=== PATIENT | male | born 2005 | race Caucasian/White ===

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

== ENCOUNTER 2024-03-27 08:16 | Emergency (ER) | payer OTHER, SELFPAY ==
[2024-03-27 08:24] VITALS: BP 123/65; PULSE 78; RESP 18; TEMP 36.9; O2SAT 100
--- NOTE | 2024-03-27 08:29 | ED_ITS ---
HPI - Skin/Abscess/Foreign Bdy General Chief complaint: Skin/Abscess/Foreign Body Stated complaint: poss hand foot and mouth Time Seen by Provider: 03/27/24 08:32 Source: patient, RN notes reviewed and old records reviewed Mode of arrival: ambulatory Limitations: no limitations History of Present Illness HPI narrative: 18 year old male presents to express care with complaints of itchy rash to the palms of his hands since yesterday around 1000 has been using some anti itch ointment and has taken Benadryl without relief.patient has also some red blotchy rash areas to the tops of his hands. Patient reports that he started having a red itching area to both ear lobes also with some crusting yellowish drainage noted on rash on right ear lobe and patient also has crusting area to his right nares area with no drainage. Patient reports that brother had hand foot and mouth about 2 weeks ago with his symptoms resolved. Patient reports that he has not used any new body products, no new laundry products or any new foods or medications. MD complaint: rash Onset (ago): day(s) (1) Tetanus up to date: yes Location: face, L hand and R hand Severity: moderate Quality: pruritic Treatments prior to arrival: OTC topical medication and Benadryl Related Data Allergies Allergy/AdvReac Type Severity Reaction Status Date / Time No Known Allergies Allergy Verified 09/04/21 15:41 Review of Systems Review of Systems: CONSTITUTIONAL: Denies fever, chills, or sweats. CARDIOVASCULAR: Denies chest pain, palpitations, or edema. RESPIRATORY: Denies cough or dyspnea. SKIN: Reports itchy rash to bilateral palms of his hands with no vesicles or pustules noted also red rash areas noted to tops of hands. Patient also has crusty rash on bilateral ear lobes with some yellowish crusting noted on right ear lobe, rash to the right nares opening also with no drainage. MUSCULOSKELETAL: Denies joint pain or myalgia. NEUROLOGIC: Denies headache, numbness, or weakness. All systems reviewed & are unremarkable except as noted in HPI and below PMFSH Past Medical History Medical History Ibuprofen overdose Surgical History Surgical History No pertinent past surgical history Social History Social History Smoking status: Never smoker Alcohol intake: never Substance use: never Living arrangements: with family Gender identity (if verbalized by the patient): Male Comments At time of signature, agree with nursing past medical, surgical, social and family history. There is no relevant family history pertinent to the presenting complaint Exam Narrative: GENERAL: Well-appearing, well-nourished, and in some acute distress related to itching of the palms of his hands HEAD: Normocephalic, atraumatic. EYES: PERRLA, conjunctivae clear, and EOMI. ENT: Mucous membranes moist. Oropharynx with tonsils noted to be swollen and red with no difficulty or painful swallowing. no lesions. NECK: Supple. No lymphadenopathy CHEST: Clear to auscultation. No respiratory distress.SAO2 100% on room air HEART: Regular rate and rhythm. SKIN: Warm, dry.? Patches of red blotchy looking rash to bilateral palms with itching and also to tops of hands no pustules or vesicles noted. Bilateral ear lobes noted to be redwith crusting and yellowish drainage noted on right ear lobe, small patch of crusting to the right nares opening with no drainage noted. NEURO:? Alert and oriented x3. PSYCH: Normal mood and affect Course Course Emergency Course: Patient is aware of diagnosis, understands and agrees to treatment plan.? Anticipatory guidance given.? Patient agrees to follow-up as directed and is aware of reasons to seek care at the emergency department. Portions of this record may have been created with voice recognition software Level of Care: Express Care Visit Vital Signs Vital signs: Reviewed MDM - Skin/Abscess/Foreign Bdy MDM Narrative Medical decision making narrative: Does not appear at this time to be erythema multiforme, bullous, SJS, TEN; no evidence at this time to suggest RMSF, endocarditis or Lyme disease; patient looks well, nontoxic and is tolerating oral intake; no neurologic signs or symptoms; no headache, photophobia or neck pain; afebrile; appropriate for initial outpatient treatment; discussed the importance of follow-up, patient agrees; question, viral exanthema, contact dermatitis, allergic dermatitis, eczema, urticaria. No soft palate or uvula edema, no tongue, lip edema or other mucosal involvement, no respiratory compromise, no stridor, no wheezing, no whe ezing, no history of syncope, no hypotension, no nausea, vomiting, or diarrhea.? Instructed patient to go to nearest ER immediately for any worsening symptoms including but not limited to: fever, spreading rash, pain, sore throat, headache, dizziness, chest pain, trouble breathing, or any symptoms concerning to the patient. Differential Diagnosis Differential diagnosis: Likely viral exanthem, cellulitis, eczema, impetigo, contact dermatitis and other (pruritic rash, [id number]) Medical Records Attestation: I reviewed the patient's medical records. Lab Data Attestation: I reviewed the patient's lab results. Lab results narrative: strep screen negative, culture sent Critical Care Time Critical Care Time Critical Care Time: No Discharge Plan Discharge Clinical Impression: Impetigo Contact dermatitis Qualifiers: Contact dermatitis type: unspecified Contact dermatitis trigger: unspecified trigger Qualified Code(s): L25.9 - Unspecified contact dermatitis, unspecified cause Patient Disposition: Home, Self-Care Condition: Stable Instructions: Antibiotic Form, Impetigo (ED), Contact Dermatitis (ED) Additional Instructions: Wash areas with liquid Dial soap twice daily apply triamcinolone ointment to hands, mupirocin ointment to ear lobes and facial area watch for increasing infection--redness, swelling, drainage Tylenol or ibuprofen for any pain or fevers follow up with PCP in 7-10 days for a wound check recheck if develop fever, chills, increasing symptom Go to the ER if your symptoms become worse of if ANY new symptoms develop Zyrtec daily for 10 days Pepcid 20 mg daily for 10 days Steroid taper start today take all doses of medication Cephalexin take as prescribed until completed If your symptoms persist, change or worsen significantly before you can contact your personal physician then please, without delay, go to the emergency department for further evaluation. Follow-up with PCP in 7-10 days or sooner if needed Follow up with PCP soon in regards to your blood pressure which is elevated above threshold for referral. Blood pressure above 120/80 may indicate pre- hypertension. May use oral Benadryl 50 mg every [address] taking or operating machinery If your symptoms persist, change or worsen significantly before you can contact your personal physician then please, without delay, go to the emergency department for further evaluation. Follow-up with PCP in 7-10 days or sooner if needed Negative strep screen with culture sent Patient Language: French Prescriptions: New famotidine [Pepcid] 20 mg tablet 20 mg PO DAILY Qty: 10 0RF prednisone 10 mg tablet 10 mg PO DIRECTED Qty: 42 0RF Rx Instructions: see taper instructions 6 tabs daily x2 days, 5 tabs daily for 2 days, 4 tabs daily 2 days, 3 tabs daily 2 days, 2 tabs daily for 2 days, 1 tab daily 2 days cephalexin 500 mg capsule 500 mg PO Q8H Qty: 30 0RF Rx Instructions: Take all doses of oral antibiotics to completed triamcinolone acetonide 0.1 % ointment 1 applic topical TID Qty: 80 0RF Rx Instructions: Apply to hands up to 3 times daily for itching never apply this ointment to the face mupirocin 2 % ointment 1 applic topical BID Qty: 22 0RF Rx Instructions: Apply this to your ear lobes and nares No Action acetaminophen 500 mg capsule 500 mg PO Q6H PRN (Reason: fever or pain) Qty: 30 0RF Follow-up/Referrals: [place],KIARRA Boland [Primary Care Provider] - Stand Alone Forms: Work/School Release IP Time of Disposition: 08:57 Quality [place] Coma Scale Eyes: Open Verbal: Oriented and Alert Motor: Follows Commands [place] Coma Total Score: 15
[2024-03-27 08:51] LABS: EDSTREPNEGPOS1 Negative (Negative)
== END 2024-03-27 09:12 | disposition home or self-care (01) ==
PROVIDERS: Emergency Provider Registered Nurse; PCP Physician Assistant
DX: L01.00 Impetigo, unspecified (principal); L25.9 Unspecified contact dermatitis, unspecified cause
CPT/HCPCS: 87081; 87880; 99213; G0463